=== PATIENT | female | born 1990 | race Caucasian/White ===

== ENCOUNTER → 2025-02-21 13:25 | Outpatient (REF) | payer BC, SELFPAY | LOC: PNTC 13:25 | PROVIDERS: ATTENDING PHYSICIAN Student in an Organized Health Care Education/Training Program | DX: O09.529 Supervision of elderly multigravida, unspecified trimester (principal); O99.280 Endocrine, nutritional and metabolic diseases complicating pregnancy, unspecified trimester | CPT/HCPCS: 36415; 76801; 76813 ==

== ENCOUNTER → 2025-04-16 08:37 | Outpatient (REF) | payer BC, SELFPAY | LOC: PNTC 08:37 | PROVIDERS: ATTENDING PHYSICIAN Student in an Organized Health Care Education/Training Program | DX: O09.529 Supervision of elderly multigravida, unspecified trimester (principal); O99.280 Endocrine, nutritional and metabolic diseases complicating pregnancy, unspecified trimester | CPT/HCPCS: 76811; 76817 ==

== ENCOUNTER → 2025-06-03 08:59 | Outpatient (REF) | payer BC, SELFPAY | LOC: PNTC 08:59 | PROVIDERS: ATTENDING PHYSICIAN Obstetrics & Gynecology | DX: O09.529 Supervision of elderly multigravida, unspecified trimester (principal) | CPT/HCPCS: 76816 ==

== ENCOUNTER 2025-07-01 12:24 | Observation (INO) | payer BC, SELFPAY ==
[2025-07-01 12:26] VITALS: BP 140/70; BMI 25.1
[2025-07-01 13:03] LABS: Hematocrit 33.1 % (37.0-47.0); Hemoglobin 11.0 g/dL (12.0-16.0); Mean Corp Hgb Conc. 33.2 g/dL (33.0-37.0); Mean Corpuscular Volume 85.1 fL (81.0-99.0); Nucleated Red Blood Cells % 0 %; Platelet Count 166 10^3/uL (130-400); Red Cell Dist. Width 14.2 % (11.5-14.5)
[2025-07-01 13:10] LABS: Urine Character Slightly Cloudy (Clear)
[2025-07-01 13:17] LABS: ALT (SGPT) 21 U/L (0-35); AST (SGOT) 25 U/L (14-36); Albumin 3.6 g/dl (3.5-5.0); Alkaline Phosphatase 89 U/L (38-126); Blood Urea Nitrogen 11 mg/dl (7-17); Calcium 8.8 mg/dl (8.4-10.2); Carbon Dioxide 18 mmol/L (22-30); Chloride 109 mmol/L (98-107); Estimated Creatinine Clearance > 125 ml/min; Glucose 93 mg/dl (70-99); Potassium 3.7 mmol/L (3.5-5.1); Sodium 133 mmol/L (135-145); Total Protein 6.6 g/dl (6.3-8.2); eGFR > 60.00
[2025-07-01 13:49] LABS: Urine Squamous Cell 16-20 /LPF (Few); Urine Urothelial Cell 0-2 /LPF (FEW)
[2025-07-01 13:50] LABS: Urine Red Blood Cell 70-80 /HPF (0-2)
[2025-07-01] MEDS: MORPHINE SULFATE 2 MG IV (14:29)
[2025-07-01] MEDS: ZOFRAN 4 MG IV (14:29)
[2025-07-01] MEDS: ROCEPHIN 1000 MG IV (15:07)
== END 2025-07-01 21:17 | disposition home or self-care (01) ==
LOC: LDRP 12:24
PROVIDERS: ADMITTING PHYSICIAN Student in an Organized Health Care Education/Training Program
DX: O26.893 Other specified pregnancy related conditions, third trimester (principal); N20.0 Calculus of kidney; M54.50 Low back pain, unspecified; Z3A.31 31 weeks gestation of pregnancy; O43.123 Velamentous insertion of umbilical cord, third trimester; O09.523 Supervision of elderly multigravida, third trimester; O99.283 Endocrine, nutritional and metabolic diseases complicating pregnancy, third trimester; E03.9 Hypothyroidism, unspecified; Z87.442 Personal history of urinary calculi; Z79.890 Hormone replacement therapy; Z80.3 Family history of malignant neoplasm of breast; Z82.49 Family history of ischemic heart disease and other diseases of the circulatory system
CPT/HCPCS: 59025; 76770; 80053; 81003; 81015; 82570; 84156; 85025; 86850; 86900; 86901; 87086; G0378

== ENCOUNTER → 2025-07-11 08:34 | Outpatient (REF) | payer BC, SELFPAY | LOC: PNTC 08:34 | PROVIDERS: ATTENDING PHYSICIAN Obstetrics & Gynecology | DX: O09.529 Supervision of elderly multigravida, unspecified trimester (principal) | CPT/HCPCS: 76816 ==

== ENCOUNTER 2025-08-15 08:15 | Inpatient (IN) | payer BC, SELFPAY ==
[2025-08-15 08:27] VITALS: BP 145/76; BMI 27.0
[2025-08-15 09:02] LABS: Hematocrit 37.8 % (37.0-47.0); Hemoglobin 12.1 g/dL (12.0-16.0); Mean Corp Hgb Conc. 32.0 g/dL (33.0-37.0); Mean Corpuscular Volume 87.3 fL (81.0-99.0); Nucleated Red Blood Cells % 0 %; Platelet Count 192 10^3/uL (130-400); Red Cell Dist. Width 13.7 % (11.5-14.5)
[2025-08-15 09:12] LABS: INR 0.96; PT 13.2 Sec (11.4-14.6)
[2025-08-15 09:13] LABS: APTT 27.1 Sec (23.4-35.0)
[2025-08-15 09:18] LABS: Fibrinogen 561 MG/DL (199-459)
[2025-08-15 09:26] LABS: ALT (SGPT) 14 U/L (0-35); AST (SGOT) 19 U/L (14-36); Albumin 3.4 g/dl (3.5-5.0); Alkaline Phosphatase 137 U/L (38-126); Blood Urea Nitrogen 9 mg/dl (7-17); Calcium 8.9 mg/dl (8.4-10.2); Carbon Dioxide 21 mmol/L (22-30); Chloride 107 mmol/L (98-107); Estimated Creatinine Clearance > 125 ml/min; Glucose 110 mg/dl (70-99); Potassium 3.7 mmol/L (3.5-5.1); Sodium 136 mmol/L (135-145); Total Protein 6.5 g/dl (6.3-8.2); eGFR > 60.00
[2025-08-15] MEDS: LR 1000 IV (10:02)
[2025-08-15] MEDS: PITOCIN 30 UNITS/NSS 500 ML IV (12:02)
[2025-08-15] MEDS: MOTRIN 600 MG PO ×2 (14:58→20:58)
[2025-08-15] MEDS: COLACE 100 MG PO (20:57)
[2025-08-16 05:03] LABS: Hematocrit 35.1 % (37.0-47.0); Hemoglobin 11.2 g/dL (12.0-16.0)
[2025-08-16] MEDS: SYNTHROID 50 MCG PO (05:53)
[2025-08-16] MEDS: MOTRIN 600 MG PO ×2 (08:11→20:10)
[2025-08-16] MEDS: PRENATAL PLUS 1 TABLET PO (08:11)
[2025-08-16] MEDS: COLACE 100 MG PO ×2 (08:11→20:00)
[2025-08-16 11:43] LABS: Syphilis/T. pallidum Ab Reflex Negative (Negative)
[2025-08-17] MEDS: SYNTHROID 50 MCG PO (05:49)
[2025-08-17] MEDS: MOTRIN 600 MG PO (09:02)
[2025-08-17] MEDS: PRENATAL PLUS 1 TABLET PO (09:02)
[2025-08-17] MEDS: COLACE 100 MG PO (09:02)
== END 2025-08-17 12:30 | disposition home or self-care (01) | DRG 807 ==
LOC: LDRP 08:15
PROVIDERS: ADMITTING PHYSICIAN Obstetrics & Gynecology; FAMILY PHYSICIAN Student in an Organized Health Care Education/Training Program
PROC: 10E0XZZ Delivery of Products of Conception, External Approach (ICD-10-PCS; 2025-08-15)
DX: O80 Encounter for full-term uncomplicated delivery (principal); Z37.0 Single live birth; Z3A.37 37 weeks gestation of pregnancy
CPT/HCPCS: 80053; 85014; 85018; 85025; 85384; 85460; 85610; 85730; 86780; 86850; 86900; 86901; 88307